=== PATIENT | female | born 1975 | race Caucasian/White ===

== ENCOUNTER 2017-10-07 13:52 | Emergency (ER) | payer OTHER ==
[~2017-10-07] VITALS: Ht 157.5 cm; Wt 68.0 kg
[2017-10-07 14:13] VITALS: BP 148/84; PULSE 77; RESP 16; TEMP 98; O2SAT 100
[2017-10-07 15:43] VITALS: BP 126/89; PULSE 81; RESP 23; O2SAT 97
[2017-10-07] MEDS ORDERED: CLON2TAB PO (15:47)
[2017-10-07] MEDS ORDERED: ALBUAER3 INH (15:47)
[2017-10-07] MEDS ORDERED: LORazepam 2 MG/ML VIAL IV PUSH ONE (17:15)
[2017-10-07] MEDS ORDERED: SODIUM CHLORIDE 0.9% FLUSH 10 ML FLUSH IV FLUSH PRN (17:15)
[2017-10-07 17:25] LABS: AUTOMATED NEUTROPHIL # 4.2 TH/MM3 (1.8-7.7); BASOPHIL # 0.1 TH/MM3 (0-0.2); BASOPHIL % 1.2 % (0.0-2.0); EOSINOPHIL # 0.6 TH/MM3 (0-0.4); EOSINOPHIL % 7.7 % (0.0-4.0); HEMATOCRIT 42.5 % (35.0-46.0); HEMOGLOBIN 14.5 GM/DL (11.6-15.3); LYMPH % 29.2 % (9.0-44.0); LYMPHOCYTE # 2.2 TH/MM3 (1.0-4.8); MEAN CELL VOLUME 96.7 FL (80.0-100.0); MEAN CORPUSCULAR HEMOGLOBIN 32.9 PG (27.0-34.0); MEAN CORPUSCULAR HGB CONC 34.1 % (32.0-36.0); MEAN PLATELET VOLUME 9.9 FL (7.0-11.0); MONO % 6.1 % (0.0-8.0); MONOCYTE # 0.5 TH/MM3 (0-0.9); NEUT % 55.8 % (16.0-70.0); PLATELET COUNT 231 TH/MM3 (150-450); RED BLOOD COUNT 4.39 MIL/MM3 (4.00-5.30); RED CELL DISTRIBUTION WIDTH 14.7 % (11.6-17.2); WHITE BLOOD COUNT 7.6 TH/MM3 (4.0-11.0)
[2017-10-07] MEDS ORDERED: LORazepam 2 MG/ML VIAL IM ONE (17:30)
[2017-10-07 17:35] LABS: BICARBONATE 27.4 MEQ/L (21.0-32.0); BLOOD UREA NITROGEN 11 MG/DL (7-18); CALCIUM 8.7 MG/DL (8.5-10.1); CHLORIDE 107 MEQ/L (98-107); CREATININE 0.75 MG/DL (0.50-1.00); GLOMERULAR FILTRATION RATE 85 ML/MIN (>89); GLUCOSE,RANDOM 96 MG/DL (74-106); SODIUM (NA) 139 MEQ/L (136-145)
[2017-10-07 17:38] LABS: TROPONIN I LESS THAN 0.02 NG/ML (0.02-0.05)
--- NOTE | 2017-10-07 17:39 | PD ---
Physical Exam Date Seen by Provider: Oct 07, 2017 Narrative This patient presents with chief complaint of anxiety. She is also complaining with chest pain and shortness of breath. Data Data Last Documented VS Vital Signs Date Time Temp Pulse Resp B/P (MAP) Pulse Ox O2 Delivery O2 Flow Rate FiO2 10/07/17 15:43 81 23 126/89 (101) 97 Room Air 10/07/17 14:13 98.0 Orders Orders Electrocardiogram (10/07/17 14:16) Complete Blood Count With Diff (10/07/17 14:16) Basic Metabolic Panel (Bmp) (10/07/17 14:16) Ckmb (Isoenzyme) Profile (10/07/17 14:16) Troponin I (10/07/17 14:16) Iv Access Insert/Monitor (10/07/17 17:14) Ecg Monitoring (10/07/17 17:14) Oximetry (10/07/17 17:14) Sodium Chloride 0.9% Flush (Ns Flush) (10/07/17 17:15) Lorazepam Inj (Ativan Inj) (10/07/17 17:30) Labs Laboratory Tests Test 10/07/17 16:50 White Blood Count 7.6 TH/MM3 Red Blood Count 4.39 MIL/MM3 Hemoglobin 14.5 GM/DL Hematocrit 42.5 % Mean Corpuscular Volume 96.7 FL Mean Corpuscular Hemoglobin 32.9 PG Mean Corpuscular Hemoglobin Concent 34.1 % Red Cell Distribution Width 14.7 % Platelet Count 231 TH/MM3 Mean Platelet Volume 9.9 FL Neutrophils (%) (Auto) 55.8 % Lymphocytes (%) (Auto) 29.2 % Monocytes (%) (Auto) 6.1 % Eosinophils (%) (Auto) 7.7 % Basophils (%) (Auto) 1.2 % Neutrophils # (Auto) 4.2 TH/MM3 Lymphocytes # (Auto) 2.2 TH/MM3 Monocytes # (Auto) 0.5 TH/MM3 Eosinophils # (Auto) 0.6 TH/MM3 Basophils # (Auto) 0.1 TH/MM3 CBC Comment DIFF FINAL Differential Comment Blood Urea Nitrogen 11 MG/DL Creatinine 0.75 MG/DL Random Glucose 96 MG/DL Calcium Level 8.7 MG/DL Sodium Level 139 MEQ/L Potassium Level 3.8 MEQ/L Chloride Level 107 MEQ/L Carbon Dioxide Level 27.4 MEQ/L Anion Gap 5 MEQ/L Estimat Glomerular Filtration Rate 85 ML/MIN MDM Supervised Visit with PATSY: Yes Narrative Course I, Dr. Montes, have reviewed the advance practice practitioner's documentation and am in agreement, met with the patient face to face, made the diagnosis, and the medical decision making was done by me. *My assessment and Findings: Patient is awake and alert and does not appear to be in any distress. She is speaking in complete sentences without dyspnea. Please see Yvonne Ramírez PA-C's note for results of laboratory and radiographic evaluation, ED course, final diagnosis and disposition Laney Montes MD Oct 07, 2017 17:39
--- NOTE | 2017-10-07 17:43 | PD ---
HPI Chief Complaint: Anxiety Time Seen by Provider: 15:39 Travel History International Travel<30 days: No Contact w/Intl Traveler<30days: No Traveled to known affect area: No History of Present Illness HPI 42-year-old female with PMH of anxiety and asthma presents to the ED for evaluation of central chest pain, described as a heaviness. Onset around 1 AM. Pain is constant, accompanied by palpitations and shortness of breath. Patient denies nausea, vomiting, diaphoresis. She states that she has been taking Klonopin 4 times a day for over 15 years. She states that she has been out of the medication for 4 days. She states that she treats her asthma exacerbations with a rescue inhaler. She denies personal cardiac history. She is unsure of any familial cardiac history. She is a current smoker. PFSH Past Medical History Asthma: Yes Anxiety: Yes Medical other: Yes (osteoporosis ) ?: Not Past Surgical History Section: Yes Gynecologic Surgery: Yes Hysterectomy: Yes (partial ) Social History Alcohol Use: No Tobacco Use: Yes (10 cig a day ) Substance Use: No Allergies-Medications (Allergen,Severity, Reaction): Uncoded Allergies: decongestions (Allergy, Severe, Rash, 10/07/17) Reported Meds & Prescriptions Reported Meds & Active Scripts Active Klonopin (Clonazepam) 2 Mg Tab 2 Mg PO TID Reported Proair Hfa 8.5 GM Inh (Albuterol Sulfate) 90 Mcg/Act Aer 2 Puff INH Q4-6H PRN 108 mcg/actuation Clonazepam 2 Mg Tab 2 Mg PO TID Review of Systems Except as stated in HPI: all other systems reviewed are Neg Physical Exam Narrative GENERAL: Well-nourished, well-developed anxious female in no acute distress. SKIN: Focused skin assessment warm/dry. HEAD: Normocephalic. EYES: No scleral icterus. No injection or drainage. NECK: Supple, trachea midline. No JVD or lymphadenopathy. CARDIOVASCULAR: Regular rate and rhythm without murmurs, gallops, or rubs. CHEST: Nontender throughout without deformity or crepitus. No retractions. RESPIRATORY: Breath sounds clear and equal bilaterally. No accessory muscle use. GASTROINTESTINAL: Abdomen soft, non-tender, nondistended. Active bowel sounds. MUSCULOSKELETAL: No cyanosis, or edema. BACK: Nontender without obvious deformity. No CVA tenderness. Data Data Last Documented VS Vital Signs Date Time Temp Pulse Resp B/P (MAP) Pulse Ox O2 Delivery O2 Flow Rate FiO2 10/07/17 19:18 10/07/17 15:43 81 23 97 Room Air 10/07/17 14:13 98.0 Orders Orders Electrocardiogram (10/07/17 14:16) Complete Blood Count With Diff (10/07/17 14:16) Basic Metabolic Panel (Bmp) (10/07/17 14:16) Ckmb (Isoenzyme) Profile (10/07/17 14:16) Troponin I (10/07/17 14:16) Iv Access Insert/Monitor (10/07/17 17:14) Ecg Monitoring (10/07/17 17:14) Oximetry (10/07/17 17:14) Sodium Chloride 0.9% Flush (Ns Flush) (10/07/17 17:15) Lorazepam Inj (Ativan Inj) (10/07/17 17:30) CKMB (10/07/17 16:50) CKMB% (10/07/17 16:50) Chest, Single Ap (10/07/17 ) Ed Discharge Order (10/07/17 18:50) Labs Laboratory Tests Test 10/07/17 16:50 White Blood Count 7.6 TH/MM3 Red Blood Count 4.39 MIL/MM3 Hemoglobin 14.5 GM/DL Hematocrit 42.5 % Mean Corpuscular Volume 96.7 FL Mean Corpuscular Hemoglobin 32.9 PG Mean Corpuscular Hemoglobin Concent 34.1 % Red Cell Distribution Width 14.7 % Platelet Count 231 TH/MM3 Mean Platelet Volume 9.9 FL Neutrophils (%) (Auto) 55.8 % Lymphocytes (%) (Auto) 29.2 % Monocytes (%) (Auto) 6.1 % Eosinophils (%) (Auto) 7.7 % Basophils (%) (Auto) 1.2 % Neutrophils # (Auto) 4.2 TH/MM3 Lymphocytes # (Auto) 2.2 TH/MM3 Monocytes # (Auto) 0.5 TH/MM3 Eosinophils # (Auto) 0.6 TH/MM3 Basophils # (Auto) 0.1 TH/MM3 CBC Comment DIFF FINAL Differential Comment Blood Urea Nitrogen 11 MG/DL Creatinine 0.75 MG/DL Random Glucose 96 MG/DL Calcium Level 8.7 MG/DL Sodium Level 139 MEQ/L Potassium Level 3.8 MEQ/L Chloride Level 107 MEQ/L Carbon Dioxide Level 27.4 MEQ/L Anion Gap 5 MEQ/L Estimat Glomerular Filtration Rate 85 ML/MIN Total Creatine Kinase 132 U/L Creatine Kinase MB 1.0 NG/ML Troponin I LESS THAN 0.02 NG/ML MDM Medical Decision Making Medical Screen Exam Complete: Yes Emergency Medical Condition: Yes Differential Diagnosis Anxiety versus asthma exacerbation versus chest pain versus less likely ACS versus other Narrative Course 42-year-old female with PMH of anxiety and asthma presents to the ED for evaluation of central chest pain, described as a heaviness. Onset around 1 AM. Pain is constant, accompanied by palpitations and shortness of breath. Patient denies nausea, vomiting, diaphoresis. She states that she has been taking Klonopin 3 times a day for over 15 years. She states that she has been out of the medication for 4 days. She states that she treats her asthma exacerbations with a rescue inhaler. She denies personal cardiac history. She is unsure of any familial cardiac history. She is a current smoker. She endorses primary care appointment on 10/17/16. Vitals reviewed. Physical exam is very reassuring. Patient was administered 1 mg Ativan IM. EKG rate 65, sinus rhythm. Normal intervals. Normal axis. No acute ST changes. Reviewed by Dr. Wick. CXR: No acute disease per radiology read. Cardiac enzymes negative 1 CBC and CMP without acute abnormalities. I discussed the patient with Dr. Montes. Will refill the patient's Klonopin prescription. Patient's instructed take the medication as prescribed, follow with the PCP as planned, return for worsening symptoms. She is stable and discharged home. Diagnosis Primary Impression: Anxiety Additional Impression: Medication refill Referrals: Primary Care Physician Patient Instructions: Anxiety (ED), General Instructions Additional Instructions: Rest, hydrate. Resume normal, gentle activities as tolerated. Resume Klonopin as previously prescribed. Follow-up with your primary care as planned. Return to the ED for any urgent or emergent medical condition. Med/Other Pt SpecificInfo: Prescription(s) given Scripts Clonazepam (Klonopin) 2 Mg Tab 2 MG PO TID, #90 TAB 0 Refills Prov: Laney Montes MD 10/07/17 Disposition: 01 DISCHARGE HOME Condition: Stable Yvonne Ramírez Oct 07, 2017 17:43
[2017-10-07] MEDS ORDERED: KLON2TAB PO (18:21)
--- NOTE | 2017-10-07 18:47 | RADRPT ---
EXAM DATE/TIME: 10/07/2017 18:29 [facility] COMPARISON: No previous studies available for comparison. INDICATIONS : Shortness of breath, chest pain for 2 days MEDICAL HISTORY : None. SURGICAL HISTORY : None. ENCOUNTER: Initial ACUITY: 2 days PAIN SCORE: 5/10 LOCATION: Left chest FINDINGS: A single view of the chest demonstrates the lungs to be symmetrically aerated without evidence of mas s, infiltrate or effusion. The cardiomediastinal contours are unremarkable. Osseous structures are intact. CONCLUSION: No acute disease. Jt Rodríguez MD on October 07, 2017 at 18:45 Board Certified Radiologist. This report was verified electronically.
--- NOTE | 2017-10-08 09:45 | EKG ---
Date Performed: 10/07/2017 Time Performed: 14:33:16 PTAGE: 42 years EKG: Sinus rhythm INDETERMINATE AXIS ATYPICAL ECG NO PREVIOUS TRACING DOCTOR: Danielito Morelos Interpretating Date/Time 10/08/2017 09:43:36
== END 2017-10-07 19:22 | disposition home or self-care (01) ==
LOC: NEPE 13:52
DX: F41.9 Anxiety disorder, unspecified (principal); Z76.0 Encounter for issue of repeat prescription; J45.909 Unspecified asthma, uncomplicated; F17.210 Nicotine dependence, cigarettes, uncomplicated; M81.0 Age-related osteoporosis without current pathological fracture
CPT/HCPCS: 71045; 80048; 82550; 82552; 84484; 85025; 93005; 96372; 99285; J2060

== ENCOUNTER 2017-11-21 16:40 | Emergency (ER) | payer OTHER ==
[~2017-11-21] VITALS: Ht 160 cm; Wt 68.0 kg
[~2017-11-21 16:40] MED LIST: ALBUAER3 INH; CLON2TAB PO; KLON2TAB PO
[2017-11-21 16:49] VITALS: BP 144/79; PULSE 98; RESP 16; TEMP 98.9; O2SAT 97
[2017-11-21] MEDS ORDERED: AMBI10TA PO (17:03)
[2017-11-21] MEDS ORDERED: clonazePAM 1 MG TAB PO ONE (17:15)
--- NOTE | 2017-11-21 17:19 | PD ---
HPI Chief Complaint: Anxiety Time Seen by Provider: 16:57 Travel History International Travel<30 days: No Contact w/Intl Traveler<30days: No Traveled to known affect area: No History of Present Illness HPI Patient is a 42-year-old female who presents the emergency room for medication refill. Patient reports that she does have a history of anxiety, reports that she takes Klonopin 2 mg 3 times a day for her anxiety. Patient reports that she last took her medications 2 days ago. Patient reports that she is working to establish her primary care doctor, she did make an appointment for one in December. Patient reports that she is here for medication refill, patient reports that when she was here on October 07, she received a prescription for Klonopin 2 mg 3 times daily for 30 days. Patient is requesting a prescription for 30 day refill on her Klonopin. Patient reports that she feels extremely anxious, reports that she does have a lot going on at home. Patient denies any suicidal or homicidal ideations, patient denies any chest pain or shortness of breath. Patient with no other complaints at this time. PFSH Past Medical History Asthma: Yes Anxiety: Yes Influenza Vaccination: No ?: Not Past Surgical History Section: Yes Gynecologic Surgery: Yes Hysterectomy: Yes Social History Alcohol Use: No Tobacco Use: Yes (10 cig a day ) Substance Use: No Allergies-Medications (Allergen,Severity, Reaction): Uncoded Allergies: decongestions (Allergy, Severe, Rash, 10/07/17) Reported Meds & Prescriptions Reported Meds & Active Scripts Active Reported Ambien (Zolpidem Tartrate) 10 Mg Tab 10 Mg PO HS PRN Clonazepam 2 Mg Tab 2 Mg PO TID Review of Systems General / Constitutional: No: Fever, Chills Eyes: No: Visual changes HENT: No: Headaches Cardiovascular: No: Chest Pain or Discomfort, Palpitations, Irregular Rhythm Respiratory: No: Cough, Shortness of Breath Gastrointestinal: No: Abdominal Pain Genitourinary: No: Dysuria Musculoskeletal: No: Pain Skin: No Rash Neurologic: No: Weakness Psychiatric: Positive: Anxiety, No: Depression, Suicidal Ideations, Disorder of Thought, Mood Disorder, Substance Abuse, Homicidal Ideation Endocrine: No: Polydipsia Hematologic/Lymphatic: No: Easy Bruising Physical Exam Narrative GENERAL: NAD, nontoxic SKIN: Focused skin assessment warm/dry. HEAD: Atraumatic. Normocephalic. EYES: Pupils equal and round. No scleral icterus. No injection or drainage. ENT: No nasal bleeding or discharge. Mucous membranes pink and moist. NECK: Trachea midline. No JVD. CARDIOVASCULAR: Regular rate and rhythm. No murmur appreciated. RESPIRATORY: No accessory muscle use. Clear to auscultation. Breath sounds equal bilaterally. GASTROINTESTINAL: Abdomen soft, non-tender, nondistended. Hepatic and splenic margins not palpable. MUSCULOSKELETAL: No obvious deformities. No clubbing. No cyanosis. No edema. NEUROLOGICAL: Awake and alert. No obvious cranial nerve deficits. Motor grossly within normal limits. Normal speech. PSYCHIATRIC: Anxious mood and affect; insight and judgment normal. Data Data Last Documented VS Vital Signs Date Time Temp Pulse Resp B/P (MAP) Pulse Ox O2 Delivery O2 Flow Rate FiO2 11/21/17 16:49 98.9 98 16 144/79 (100) 97 Orders Orders Clonazepam (Klonopin) (11/21/17 17:15) [facility] Medical Decision Making Medical Screen Exam Complete: Yes Emergency Medical Condition: Yes Medical Record Reviewed: Yes Interpretation(s) Vital Signs Date Time Temp Pulse Resp B/P (MAP) Pulse Ox O2 Delivery O2 Flow Rate FiO2 11/21/17 16:49 98.9 98 16 144/79 (100) 97 Differential Diagnosis Anxiety reaction, medication refill Narrative Course 42-year-old female presents the emergency room with complaints of medication refill for Klonopin 2 mg 3 times daily. Patient reports history of anxiety, reports that she has been out of her medications and needs a refill, reports that she was here last month and had a 30 day refill and is requesting another refill until she can be seen by her primary care doctor in December. Patient with no chest pain or shortness of breath, no suicidal or homicidal ideations. Discussed with patient importance of following up with a primary care doctor for further refills of her medications. I will write a script for a few days of this medication. Diagnosis Primary Impression: Medication refill Additional Impression: Anxiety Patient Instructions: General Instructions Additional Instructions: Please follow-up with your primary care doctor as soon as possible Do not drive or operate heavy machinery while taking Klonopin Return to the emergency room as needed Med/Other Pt SpecificInfo: Prescription(s) given Scripts Clonazepam (Klonopin) 2 Mg Tab 2 MG PO TID for 5 Days, #15 TAB 0 Refills Prov: Sangeetha Ibarra DO 11/21/17 Disposition: 01 DISCHARGE HOME Condition: Stable Sangeetha Ibarra DO Nov 21, 2017 17:19
[2017-11-21] MEDS ORDERED: KLON2TAB PO (17:26)
== END 2017-11-21 17:53 | disposition home or self-care (01) ==
LOC: PHED 16:40
DX: F41.9 Anxiety disorder, unspecified (principal); Z76.0 Encounter for issue of repeat prescription; J45.909 Unspecified asthma, uncomplicated; F17.210 Nicotine dependence, cigarettes, uncomplicated
CPT/HCPCS: 99281

== ENCOUNTER 2017-12-02 08:08 | Emergency (ER) | payer OTHER ==
[~2017-12-02] VITALS: Ht 160 cm; Wt 67.5 kg
[~2017-12-02 08:08] MED LIST changes: -ALBUAER3 INH; +AMBI10TA PO
[2017-12-02 08:13] VITALS: BP 143/79; PULSE 88; RESP 18; TEMP 98.4; O2SAT 96
[2017-12-02] MEDS ORDERED: VIST25CA PO (08:40)
[2017-12-02] MEDS ORDERED: ZOFR4TAB3 SL (08:40)
--- NOTE | 2017-12-02 08:40 | PD ---
HPI Chief Complaint: Anxiety Time Seen by Provider: 08:26 Travel History International Travel<30 days: No Contact w/Intl Traveler<30days: No Traveled to known affect area: No History of Present Illness HPI 42-year-old female complains anxiety and nausea. Patient states that she has history of chronic anxiety past 18 years. Patient has been taking Klonopin for that. Patient states that she ran out of Klonopin 2 days ago. Patient states that symptoms started last night. Patient was taking Klonopin 2 mg 3 times a day. Patient also has been taking baclofen and Neurontin for chronic pain. Patient denies any alcohol or drug abuse. Patient denies any headache. Patient states that she has nausea but no vomiting or diarrhea. Patient denies abdominal pain. Patient denies fever chills. PFSH Past Medical History Asthma: Yes Anxiety: Yes Influenza Vaccination: No ?: Not Past Surgical History Section: Yes Gynecologic Surgery: Yes Hysterectomy: Yes Social History Alcohol Use: No Tobacco Use: Yes (10 cig a day ) Substance Use: No Allergies-Medications (Allergen,Severity, Reaction): Uncoded Allergies: decongestions (Allergy, Severe, Rash, 10/07/17) Reported Meds & Prescriptions Reported Meds & Active Scripts Active Klonopin (Clonazepam) 2 Mg Tab 2 Mg PO TID 5 Days Reported Ambien (Zolpidem Tartrate) 10 Mg Tab 10 Mg PO HS PRN Review of Systems General / Constitutional: No: Fever Eyes: No: Visual changes HENT: No: Headaches Cardiovascular: No: Chest Pain or Discomfort Respiratory: No: Shortness of Breath Gastrointestinal: Positive: Nausea, No: Abdominal Pain Genitourinary: No: Dysuria Musculoskeletal: No: Pain Skin: No Rash Neurologic: No: Weakness Psychiatric: Positive: Anxiety, No: Depression Endocrine: No: Polydipsia Hematologic/Lymphatic: No: Easy Bruising Physical Exam Narrative GENERAL: Well-nourished, well-developed patient. SKIN: Focused skin assessment warm/dry. HEAD: Normocephalic. EYES: No scleral icterus. No injection or drainage. NECK: Supple, trachea midline. No JVD or lymphadenopathy. CARDIOVASCULAR: Regular rate and rhythm without murmurs, gallops, or rubs. RESPIRATORY: Breath sounds equal bilaterally. No accessory muscle use. GASTROINTESTINAL: Abdomen soft, non-tender, nondistended. MUSCULOSKELETAL: No cyanosis, or edema. BACK: Nontender without obvious deformity. No CVA tenderness. Neurologic exam normal. Data Data Last Documented VS Vital Signs Date Time Temp Pulse Resp B/P (MAP) Pulse Ox O2 Delivery O2 Flow Rate FiO2 12/02/17 08:13 98.4 88 18 143/79 (100) 96 Orders Orders Hydroxyzine Hcl Inj (Vistaril Inj) (12/02/17 08:45) MDM Medical Decision Making Medical Screen Exam Complete: Yes Emergency Medical Condition: Yes Differential Diagnosis Differential diagnosis including acute anxiety. Narrative Course 42-year-old female with anxiety and nausea. History anxiety and ran out of medication 2 days ago. Patient was on Klonopin. Patient's not tachycardic. Blood pressures under control. Patient is not agitated. Vistaril 25 mg IM. Advised patient to follow up with local physician for refill of Klonopin. Diagnosis Primary Impression: Anxiety Patient Instructions: General Instructions Additional Instructions: Vistaril and Zofran as needed. Follow-up with local physician. Med/Other Pt SpecificInfo: Prescription(s) given Scripts Ondansetron Odt (Zofran Odt) 4 Mg Tab 4 MG SL Q6HR Y for Nausea/Vomiting, #10 TAB 0 Refills Prov: Dinesh Jang MD 12/02/17 Hydroxyzine Pamoate (Vistaril) 25 Mg Cap 25 MG PO TID Y for ANXIETY, #15 CAP 0 Refills Prov: Dinesh Jang MD 12/02/17 Disposition: 01 DISCHARGE HOME Condition: Stable Dinesh Jang MD Dec 02, 2017 08:40
[2017-12-02] MEDS ORDERED: hydrOXYzine HCL 50 MG/ML VIAL IM ONE (08:45)
== END 2017-12-02 08:59 | disposition home or self-care (01) ==
LOC: PHED 08:08
DX: F41.9 Anxiety disorder, unspecified (principal); J45.909 Unspecified asthma, uncomplicated; G89.29 Other chronic pain; F17.210 Nicotine dependence, cigarettes, uncomplicated
CPT/HCPCS: 96372; 99283; J3410